=== PATIENT | female | born 1990 | race Caucasian/White ===

== ENCOUNTER 2019-11-19 06:43 | Outpatient (CLI) | payer OTHER ==
[2019-11-19 07:18] LABS: APPEARANCE,URINE CLEAR; BILIRUBIN,URINE NEGATIVE (NEGATIVE); COLOR,URINE STRAW; GLUCOSE, URINE 50 mg/dL (NEGATIVE); KETONES,URINE NEGATIVE (NEGATIVE); LEUKOCYTE ESTERASE,URINE NEGATIVE (NEGATIVE); NITRITE,URINE NEGATIVE (NEGATIVE); PROTEIN,URINE NEGATIVE (NEGATIVE); URINE SPECIFIC GRAVITY 1.003; UROBILINOGEN,URINE NEGATIVE mg/dL (<2.0)
[2019-11-19 07:36] LABS: URINE AMPHETAMINES SCREEN NEGATIVE; URINE BARBITURATES SCREEN NEGATIVE; URINE BENZODIAZEPINES SCREEN NEGATIVE; URINE COCAINE SCREEN NEGATIVE; URINE MARIJUANA (THC) SCREEN NEGATIVE; URINE METHADONE SCREEN NEGATIVE; URINE PHENCYCLIDINE SCREEN NEGATIVE
[2019-11-19] MEDS ORDERED: HYDROXYZINE PAMOATE 50 MG CAPSULE ONE (08:22)
[2019-11-19] MEDS ORDERED: HYDROXYZINE PAMOATE 50 MG CAPSULE PO ONE (08:24)
--- NOTE | 2019-11-19 08:35 | Non Stress Test Report ---
Non Stress Test Datetime Report Generated by CPN: 11/19/2019 08:35 DEMOGRAPHIC EGA NST: 38.4 INDICATION Indication for Study (NST) Other: LC MONITORING Monitor Explained: Monitor Explained; Test Explained; Patient Verbalized Understanding Time on Monitor: 11/19/2019 07:00 Time off Monitor: 11/19/2019 08:34 NST Duration: 94 NST INTERVENTIONS NST Interventions: None Physician Notified NST: Dr. Zaragoza BABY A: [id number] BABY A Movement : Present Contraction Frequency : irregular FHR Baseline : 130 (Annotations: Data stored by [facility] on behalf of user) Accelerations : 15X15 Decelerations : None Variability : Moderate 6-25bpm NST Review: Meets Criteria for Reactive NST NST Review and Verified By : Ericka Phelps RN NST Results: Reactive NST REPORT Report Trigger: Send Report
== END 2019-11-19 08:27 | disposition home or self-care (01) ==
LOC: LC 06:43
PROVIDERS: ATTEND Obstetrics & Gynecology Gynecology
DX: O47.1 False labor at or after 37 completed weeks of gestation (principal); Z3A.38 38 weeks gestation of pregnancy
CPT/HCPCS: 59025; 80307; 81005

== ENCOUNTER 2019-11-20 09:32 | Outpatient (CLI) | payer OTHER ==
[2019-11-20 10:07] LABS: APPEARANCE,URINE CLEAR; BILIRUBIN,URINE NEGATIVE (NEGATIVE); COLOR,URINE YELLOW; GLUCOSE, URINE NEGATIVE (NEGATIVE); KETONES,URINE NEGATIVE (NEGATIVE); LEUKOCYTE ESTERASE,URINE NEGATIVE (NEGATIVE); NITRITE,URINE NEGATIVE (NEGATIVE); PROTEIN,URINE NEGATIVE (NEGATIVE); URINE SPECIFIC GRAVITY 1.008; UROBILINOGEN,URINE NEGATIVE mg/dL (<2.0)
[2019-11-20 10:22] LABS: URINE AMPHETAMINES SCREEN NEGATIVE; URINE BARBITURATES SCREEN NEGATIVE; URINE BENZODIAZEPINES SCREEN NEGATIVE; URINE COCAINE SCREEN NEGATIVE; URINE MARIJUANA (THC) SCREEN NEGATIVE; URINE METHADONE SCREEN NEGATIVE; URINE PHENCYCLIDINE SCREEN NEGATIVE
[2019-11-20] MEDS ORDERED: HYDROXYZINE PAMOATE 50 MG CAPSULE ONE (11:41)
[2019-11-20] MEDS ORDERED: HYDROXYZINE PAMOATE 50 MG CAPSULE PO ONE (11:48)
--- NOTE | 2019-11-20 11:50 | Non Stress Test Report ---
Non Stress Test Datetime Report Generated by CPN: 11/20/2019 11:50 DEMOGRAPHIC Test Number: 2 EGA NST: 38.5 INDICATION Indication for Study (NST) Other: labor check VITAL SIGNS Temperature - NST: 98.2 Pulse - NST: 73 RESP - NST: 12 NBPSYS NST: 105 NBPDIA NST: 67 MONITORING Monitor Explained: Monitor Explained; Test Explained Time on Monitor: 11/20/2019 09:45 Time off Monitor: 11/20/2019 11:38 NST Duration: 113 NST INTERVENTIONS NST Interventions: PO Hydration; Reposition Patient Physician Notified NST: Hay MD BABY A: [id number] BABY A Movement : Present Contraction Frequency : irregular FHR Baseline : 125 Accelerations : 15X15 Decelerations : None Variability : Moderate 6-25bpm NST Review: Meets Criteria for Reactive NST NST Review and Verified By : Balbina RN NST Results: Reactive NST REPORT Report Trigger: Send Report
== END 2019-11-20 12:02 | disposition home or self-care (01) ==
LOC: LC 09:32
PROVIDERS: ATTEND Obstetrics & Gynecology
DX: O47.1 False labor at or after 37 completed weeks of gestation (principal); Z3A.37 37 weeks gestation of pregnancy; Z88.1 Allergy status to other antibiotic agents
CPT/HCPCS: 59025; 80307; 81005

== ENCOUNTER 2019-11-21 10:59 | Outpatient (CLI) | payer OTHER ==
[2019-11-21 11:34] LABS: APPEARANCE,URINE SLIGHTLY-CLOUDY; BILIRUBIN,URINE NEGATIVE (NEGATIVE); COLOR,URINE YELLOW; GLUCOSE, URINE 50 mg/dL (NEGATIVE); KETONES,URINE NEGATIVE (NEGATIVE); LEUKOCYTE ESTERASE,URINE TRACE (NEGATIVE); NITRITE,URINE NEGATIVE (NEGATIVE); PROTEIN,URINE 30 mg/dL (NEGATIVE); URINE SPECIFIC GRAVITY 1.013; UROBILINOGEN,URINE NEGATIVE mg/dL (<2.0)
[2019-11-21 11:56] LABS: URINE AMPHETAMINES SCREEN NEGATIVE; URINE BARBITURATES SCREEN NEGATIVE; URINE BENZODIAZEPINES SCREEN NEGATIVE; URINE COCAINE SCREEN NEGATIVE; URINE MARIJUANA (THC) SCREEN NEGATIVE; URINE METHADONE SCREEN NEGATIVE; URINE PHENCYCLIDINE SCREEN NEGATIVE
[2019-11-21] MEDS ORDERED: RINGERS SOLUTION,LACTATED 1,000 ML IV ONE (12:18)
[2019-11-21] MEDS ORDERED: NALBUPHINE HCL INJ 10 MG/1 ML AMPULE IV ONE (12:19)
[2019-11-21] MEDS ORDERED: PROMETHAZINE HCL INJ 25 MG/1 ML VIAL IV ONE (12:20)
[2019-11-21] MEDS ORDERED: PROMETHAZINE HCL INJ 25 MG/1 ML VIAL ONE (12:21)
[2019-11-21] MEDS ORDERED: NALBUPHINE HCL INJ 10 MG/1 ML AMPULE ONE (12:21)
[2019-11-21] MEDS ORDERED: NALBUPHINE HCL INJ 10 MG/1 ML AMPULE INJ ONE (12:52)
== END 2019-11-21 14:22 | disposition home or self-care (01) ==
LOC: LC 10:59
PROVIDERS: ATTEND Obstetrics & Gynecology
DX: O47.1 False labor at or after 37 completed weeks of gestation (principal); Z3A.38 38 weeks gestation of pregnancy; Z88.1 Allergy status to other antibiotic agents
CPT/HCPCS: 59025; 81005; 80307; J2300; J2550

== ENCOUNTER 2019-11-22 00:24 | Inpatient (IN) | payer OTHER ==
[2019-11-22 01:02] LABS: APPEARANCE,URINE SLIGHTLY-CLOUDY; BILIRUBIN,URINE NEGATIVE (NEGATIVE); COLOR,URINE YELLOW; GLUCOSE, URINE NEGATIVE (NEGATIVE); KETONES,URINE NEGATIVE (NEGATIVE); LEUKOCYTE ESTERASE,URINE TRACE (NEGATIVE); NITRITE,URINE NEGATIVE (NEGATIVE); PROTEIN,URINE NEGATIVE (NEGATIVE); URINE SPECIFIC GRAVITY 1.006; UROBILINOGEN,URINE NEGATIVE mg/dL (<2.0)
[2019-11-22] MEDS ORDERED: NALBUPHINE HCL INJ 10 MG/1 ML AMPULE ONE (01:27)
[2019-11-22] MEDS ORDERED: PROMETHAZINE HCL INJ 25 MG/1 ML VIAL ONE (01:27)
[2019-11-22] MEDS ORDERED: PROMETHAZINE HCL INJ 25 MG/1 ML VIAL IV ONE (01:30)
[2019-11-22] MEDS ORDERED: NALBUPHINE HCL INJ 10 MG/1 ML AMPULE INJ ONE (01:30)
[2019-11-22] MEDS ORDERED: RINGERS SOLUTION,LACTATED 1,000 ML IV PRN (01:37)
[2019-11-22 01:55] LABS: URINE AMPHETAMINES SCREEN NEGATIVE; URINE BARBITURATES SCREEN NEGATIVE; URINE BENZODIAZEPINES SCREEN NEGATIVE; URINE COCAINE SCREEN NEGATIVE; URINE MARIJUANA (THC) SCREEN NEGATIVE; URINE METHADONE SCREEN NEGATIVE; URINE PHENCYCLIDINE SCREEN NEGATIVE
[2019-11-22] MEDS ORDERED: OXYTOCIN 10 UNIT/ML VIAL ONE (05:29)
[2019-11-22] MEDS ORDERED: MISOPROSTOL 0.2 MG TABLET ONE (05:29)
[2019-11-22] MEDS ORDERED: OXYTOCIN/0.9 % SODIUM CHLORIDE 30 UNIT/500 ML RTUINJ ONE (05:30)
[2019-11-22] MEDS ORDERED: FENTANYL/BUPIVACAINE/NS/PF 300 MCG/150 ML RTUINJ EPI ONE (05:30)
[2019-11-22] MEDS ORDERED: BUPIVACAINE HCL 0.25 % INJ/PF (2.5 MG/1 ML) 30 ML VIAL ONE (05:30)
[2019-11-22] MEDS ORDERED: LIDOCAINE 1% INJ-PF (10 MG/ML) 30 ML SDV ONE (05:30)
[2019-11-22] MEDS ORDERED: EPHEDRINE SULFATE INJ 50 MG/1 ML AMPULE ONE (05:30)
--- NOTE | 2019-11-22 06:15 | Admission Physical ---
Datetime Report Generated by CPN: 11/22/2019 06:15 CURRENT ADMISSION Chief Complaint: Uterine Contractions Chief Complaint Other: Here for painful contractions approx 5-6 apart Admit Impression : Term, Intrauterine Admit Plan: Admit to Unit; Initiate Labor Protocol ALLERGIES Medication Allergies: Yes Medication Allergies: amoxicillin (11/22/2019) Latex: No Latex Allergies Food Allergies: n/a Environmental Allergies: n/a OBSTETRICAL HISTORY EDC: 11/29/2019 00:00 : 2 Para: 0 Term: 0 : 0 SAB: 1 IAB: 0 Ectopic: 0 Livin Cesareans: 0 VBACs: 0 Multiple Births: 0 Gestational Diabetes: No Rh Sensitization: No Incompetent Cervix: No SYLVESTER: No Infertility: No ART Treatment: No Uterine Anomaly: No IUGR: No Hx Previous C/S: No Macrosomia: No Hx Loss/Stillborn: No PIH: No Hx : No Placenta Previa/Abruption: No Depression/PP Depression: No PTL/PROM: No Post Hemorrhage: No Current Procedures: Ultrasound Obstetrical History Comments: current: S>D>97th% hydramnios SEE RECORDS Alcohol: No Marijuana : No Cocaine: No Other Illicit Drugs: No Cigarettes: Never Smoker. [id number] MEDICAL HISTORY Diabetes: No Blood Transfusion: No Pulmonary Disease (Asthma, TB): No Breast Disease: No Hypertension: No Car Hop Surgery: No Heart Disease: No Hosp/Surgery: No Autoimmune Disorder: No Anesthetic Complications: No Kidney Disease: No Abnormal Pap Smear: No Neuro/Epilepsy: No Psychiatric Disorders: No Other Medical Diseases: No Hepatitis/Liver Disease: No Significant Family History: No Varicosities/Phlebitis: No Trauma/Violence : No Thyroid Dysfunction: No INFECTIOUS HISTORY Gonorrhea: No Genital Herpes: No Chlamydia: No Tuberculosis: No Syphilis: No Hepatitis: No HIV/AIDS Exposure: No Rash or Viral Illness: No HPV: No PHYSICAL EXAM General: Normal HEENT: Normal Neurologic: Normal Thyroid: Normal Heart: Normal Lungs: Normal Breast: Normal Back: Normal Abdomen: Normal Genitourinary Exam: Normal Extremities: Normal DTRs: Normal Pelvic Type: Adequate Vital Signs: Reviewed VAGINAL EXAM Dilatation: 5 Effacement: 80 Station: -1 Contraction Comments: Contractions Q 5 minutes MEMBRANES Pooling: Negative Membranes: Intact FETUS A EGA: 39.0 Monitoring: External US FHR- Baseline: 130 Variability: Moderate 6-25bpm Accelerations: 15X15 Decelerations: None FHR Category: Category I Presentation: Vertex Admit Comment: at 39.0 weeks EGA in active labor -Admit to LDR -NPO and IVFs: LR bolus one liter then continue at 125 cc/h -GBS Negative -Hx one SAB -Baby last in 97%, Poly but resolved -Anticipate PLANS FOR LABOR AND DELIVERY Labor and Delivery: None Pain Management: Natural; Medications; Epidural Feeding Preference: Both Benefit of Breast Feed Discussed: Yes Circumcision: N/A INFORMED CONSENT Informed Consent Obtained: Vaginal Delivery; Vacuum/Forceps Assist; Risks, Benefits and Alternatives Discussed Signature: with User ID: Robert : with User ID: Robert
[2019-11-22] MEDS ORDERED: FAMOTIDINE INJ/PF 20 MG/2 ML SDV IV SCH (06:30)
[2019-11-22 06:59] LABS: ABSOLUTE EOSINOPHILS # (AUTO) 0.1 10^3/uL (0.0-0.6); ABSOLUTE LYMPHOCYTES (AUTO) 2.2 10^3/uL (0.5-4.7); ABSOLUTE MONOCYTES (AUTO) 1.1 10^3/uL (0.1-1.4); ABSOLUTE NEUT (AUTO) 11.3 10^3/uL (1.7-8.2); BASOPHILS % (AUTO) 0.1 % (0-2); EOSINOPHILS % (AUTO) 0.7 % (0-6); HEMATOCRIT 36.6 % (36.0-47.0); HEMOGLOBIN 12.6 g/dL (12.0-15.5); LYMPHOCYTES % (AUTO) 14.7 % (13-45); MEAN CORPUSCULAR HEMOGLOBIN 30.5 pg (27.0-33.4); MEAN CORPUSCULAR HGB CONC 34.5 g/dL (32.0-36.0); MEAN CORPUSCULAR VOLUME 89 fl (80-97); MONOCYTES % (AUTO) 7.7 % (3-13); PLATELET COUNT 205 10^3/uL (150-450); RED BLOOD COUNT 4.13 10^6/uL (3.72-5.28); RED CELL DISTRIBUTION WIDTH 13.4 % (11.5-14.0); SEGMENTED NEUTROPHILS % (AUTO) 76.8 % (42-78); TOTAL CELLS COUNTED % (AUTO) 100 %; WHITE BLOOD COUNT 14.8 10^3/uL (4.0-10.5)
[2019-11-22] MEDS ORDERED: FENTANYL CITRATE INJ/PF 100 MCG/2 ML AMPUL ONE (07:38)
--- NOTE | 2019-11-22 08:32 | L&D Progress Notes ---
PROGRESS NOTES Datetime Report Generated by CPN: 11/22/2019 08:32 PROGRESS NOTE Impression: Reassuring Heart Rate Plan: Continue Present Management Informed Consent Obtained: Vaginal Delivery; Vacuum/Forceps Assist; Risks, Benefits and Alternatives Discussed Comment: comfortable after epidural, decleration x 5 minutes, turned to left side, resolved, moderate variability VAGINAL EXAM Dilatation: 5 Effacement: 80 Station: -1 Contractions: Contractions Q 5 minutes LAST VAGINAL EXAM-NURSING Nursing Exam Dilitation: 6.0 Nursing Exam Effacement: 90 Nursing Exam Station: 0 Nursing Exam Contractions: Unable to determine cx pattern d/t pt going to the restroom MEMBRANES Pooling: Negative Membranes: Intact FETUS A : 39.0 Presentation: Vertex SIGNATURE SIGNATURE: [id number] Assignment: Deepika Gavin MD Signature: with User ID: [email or web address] : with User ID: [email or web address]
[2019-11-22] MEDS ORDERED: OXYTOCIN/0.9 % SODIUM CHLORIDE 30 UNIT/500 ML RTUINJ IV PRN ×2 (09:29→16:59)
--- NOTE | 2019-11-22 09:35 | L&D Progress Notes ---
PROGRESS NOTES Datetime Report Generated by CPN: 11/22/2019 09:35 PROGRESS NOTE Impression: Reassuring Heart Rate Plan: Continue Present Management; Augmentation Informed Consent Obtained: Vaginal Delivery; Vacuum/Forceps Assist; Risks, Benefits and Alternatives Discussed Vital Signs : Reviewed; Within Normal Limits Comment: Irregular uc's, will start Pitocin for augmentation, comfortable with epidural, Cat 1 strip, uc's q 5-8 min VAGINAL EXAM Dilatation: 5 Effacement: 80 Station: -1 Contractions: Contractions Q 5 minutes LAST VAGINAL EXAM-NURSING Nursing Exam Dilitation: 6.0 Nursing Exam Effacement: 90 Nursing Exam Station: 0 Nursing Exam Contractions: Unable to determine cx pattern d/t pt going to the restroom MEMBRANES Pooling: Negative Membranes: Intact FETUS A Monitoring: External US FHR Category: Category I : 39.0 Presentation: Vertex SIGNATURE SIGNATURE: [id number] Assignment: Deepika Gavin MD Signature: with User ID: Mike : with User ID: Mike
[2019-11-22] MEDS ORDERED: LABETALOL HCL 200 MG TABLET PO SCH (10:00)
--- NOTE | 2019-11-22 12:00 | L&D Progress Notes ---
PROGRESS NOTES Datetime Report Generated by CPN: 11/22/2019 12:00 PROGRESS NOTE Impression: Non-reassuring Heart Rate Plan: Continue Present Management; Augmentation Informed Consent Obtained: Vaginal Delivery; Vacuum/Forceps Assist; Risks, Benefits and Alternatives Discussed Vital Signs : Reviewed; Within Normal Limits Comment: Late decelerations, Pitocin stopped, position change, increase IV fluids, Oxygen VAGINAL EXAM Dilatation: 5 Effacement: 80 Station: -1 Contractions: Contractions Q 5 minutes LAST VAGINAL EXAM-NURSING Nursing Exam Dilitation: 8-9 Nursing Exam Effacement: 90 Nursing Exam Station: -1 Nursing Exam Contractions: Unable to determine cx pattern d/t pt going to the restroom MEMBRANES Pooling: Negative Membranes: Intact FETUS A Monitoring: External US FHR Category: Category I : 39.0 Presentation: Vertex SIGNATURE SIGNATURE: [id number] Assignment: Deepika Gavin MD Signature: with User ID: [email or web address] : with User ID: Mike
--- NOTE | 2019-11-22 14:21 | L&D Progress Notes ---
PROGRESS NOTES Datetime Report Generated by CPN: 11/22/2019 14:21 PROGRESS NOTE Impression: Non-reassuring Heart Rate Plan: Continue Present Management; Augmentation Informed Consent Obtained: Vaginal Delivery; Vacuum/Forceps Assist; Risks, Benefits and Alternatives Discussed Vital Signs : Reviewed; Within Normal Limits Comment: complete,start pushing, variables and late decels with pushing, Pitocin has been off, Oxygen, knee chest VAGINAL EXAM Dilatation: 5 Effacement: 80 Station: -1 Contractions: Contractions Q 5 minutes LAST VAGINAL EXAM-NURSING Nursing Exam Dilitation: 10.0 Nursing Exam Effacement: 100 Nursing Exam Station: 1 Nursing Exam Contractions: Unable to determine cx pattern d/t pt going to the restroom MEMBRANES Pooling: Negative Membranes: Intact FETUS A Monitoring: External US FHR Category: Category I : 39.0 Presentation: Vertex SIGNATURE SIGNATURE: [id number];[id number];[id number] Assignment: Deepika Gavin MD Signature: with User ID: Mike : with User ID: Mike
--- NOTE | 2019-11-22 16:08 | L&D Progress Notes ---
PROGRESS NOTES Datetime Report Generated by CPN: 11/22/2019 16:08 PROGRESS NOTE Impression: Non-reassuring Heart Rate Plan: Continue Present Management; Augmentation Informed Consent Obtained: Vaginal Delivery; Vacuum/Forceps Assist; Risks, Benefits and Alternatives Discussed Vital Signs : Reviewed; Within Normal Limits Comment: VE by Dr. Gavin to evaluate position, ROT, repositioned, different pushing techniques used, Cat 1 strip, No Pitocin continue to push and reevaluate in 1 hr, variables with pushing at times, moderate variability VAGINAL EXAM Dilatation: 5 Effacement: 80 Station: -1 Contractions: Contractions Q 5 minutes LAST VAGINAL EXAM-NURSING Nursing Exam Dilitation: 10.0 Nursing Exam Effacement: 100 Nursing Exam Station: 1 Nursing Exam Contractions: Unable to determine cx pattern d/t pt going to the restroom MEMBRANES Pooling: Negative Membranes: Intact FETUS A Monitoring: External US FHR Category: Category I : 39.0 Presentation: Vertex SIGNATURE SIGNATURE: [id number];[id number] Assignment: Deepika Gavin MD Signature: with User ID: Mike : with User ID: Mike
[2019-11-22] MEDS ORDERED: GLYCERIN/WITCH HAZEL LEAF 1 EACH MED..WIPE TP PRN (16:59)
[2019-11-22] MEDS ORDERED: MEASLES,MUMPS&RUBELLA VACC/PF 0.5 ML VIAL SUBCUT PRN (16:59)
[2019-11-22] MEDS ORDERED: ACETAMINOPHEN WITH CODEINE #3 TABLET PO PRN ×2 (16:59)
[2019-11-22] MEDS ORDERED: MAGNESIUM HYDROXIDE SUSP 30 ML UDCUP PO PRN (16:59)
[2019-11-22] MEDS ORDERED: DIPH/PERTUSS(ACELL)/TETANUS VAC/PF 0.5 ML SYR (>=10YO) IM PRN (16:59)
[2019-11-22] MEDS ORDERED: PSEUDOEPHEDRINE HCL 30 MG TABLET PO PRN (16:59)
[2019-11-22] MEDS ORDERED: ACETAMINOPHEN 325 MG TABLET PO PRN (16:59)
[2019-11-22] MEDS ORDERED: PROMETHAZINE HCL 25 MG SUPP.RECT PR PRN (16:59)
[2019-11-22] MEDS ORDERED: ZOLPIDEM TARTRATE 5 MG TABLET PO PRN (16:59)
[2019-11-22] MEDS ORDERED: PROMETHAZINE HCL INJ 25 MG/1 ML VIAL IV PRN (16:59)
[2019-11-22] MEDS ORDERED: BENZOCAINE/MENTHOL AEROSOL SPRAY 56 ML TOP PRN (16:59)
[2019-11-22] MEDS ORDERED: PROMETHAZINE HCL 25 MG TABLET PO PRN (16:59)
[2019-11-22] MEDS ORDERED: MISOPROSTOL 0.2 MG TABLET PR PRN (16:59)
[2019-11-22] MEDS ORDERED: NA PHOS,M-B/NA PHOS,DI-BA (ADULT) 133 ML ENEMA PR PRN (16:59)
[2019-11-22] MEDS ORDERED: DIBUCAINE 1% OINTMENT 28 GM TP PRN (16:59)
[2019-11-22] MEDS ORDERED: DIPHENHYDRAMINE HCL 25 MG CAPSULE PO PRN (16:59)
[2019-11-22] MEDS: FAMOTIDINE 20 MG TABLET PO SCH (21:42)
[2019-11-22] MEDS: IBUPROFEN 800 MG TABLET PO SCH (21:43)
[2019-11-23] MEDS: IBUPROFEN 800 MG TABLET PO SCH ×3 (05:26→22:37)
[2019-11-23] MEDS: DOCUSATE SODIUM 100 MG CAPSULE PO SCH ×3 (08:13→17:20)
[2019-11-23] MEDS: FERROUS SULFATE 325 MG TABLET PO SCH ×3 (08:13→17:20)
[2019-11-23 08:24] LABS: HEMATOCRIT 36.5 % (36.0-47.0); HEMOGLOBIN 12.3 g/dL (12.0-15.5); MEAN CORPUSCULAR HEMOGLOBIN 30.2 pg (27.0-33.4); MEAN CORPUSCULAR HGB CONC 33.7 g/dL (32.0-36.0); MEAN CORPUSCULAR VOLUME 90 fl (80-97); PLATELET COUNT 217 10^3/uL (150-450); RED BLOOD COUNT 4.08 10^6/uL (3.72-5.28); RED CELL DISTRIBUTION WIDTH 13.3 % (11.5-14.0)
--- NOTE | 2019-11-23 09:50 | PDOC PROGRESS REPORT ---
Subjective-OB Progress Note for:: 11/23/19 - PP Day #1, doing well, A negative, rubella non- immune, , UOB voiding Physical Exam (OB) Vital Signs: Temp Pulse Resp BP Pulse Ox 98.0 F 78 17 121/66 97 11/23/19 08:07 11/23/19 08:07 11/23/19 08:07 11/23/19 08:07 11/23/19 08:07 Intake & Output 11/22/19 11/23/19 11/24/19 06:59 06:59 06:59 Weight 93.9 kg - General General Appearance: Appears well, Alert In distress: None - Lochia Lochia Amount: Scant < 10 ml Lochia Color: Rubra/Red - Abdomen Description: Soft, Round Hernia Present: No Fundal Description: Firm, Midline Fundal Height: u/u - u/2 - Respiratory Respiratory Status: No respiratory distress - Abdominal Distension: No distension Tenderness: Nontender - Genitourinary Genitourinary Note: voiding - Extremities Upper extremity: Normal inspection Lower extremities: Normal inspection - Neurological Cognition: Normal Orientation: AAOx4 - Psychological Associated symptoms: Normal affect, Normal mood - Skin Skin Temperature: Warm Objective-Diagnostic Laboratory: 11/23/19 06:43 11/22/19 11/23/19 06:14 06:43 WBC 19.0 H RBC 4.08 Hgb 12.3 Hct 36.5 MCV 90 MCH 30.2 MCHC 33.7 RDW 13.3 Plt Count 217 Blood Type A NEGATIVE Antibody Screen POSITIVE Assessment and Plan(PN) - Assessment and Plan (1) macrosomia Qualifiers: Fetus number: fetus 1 of multiple gestation Trimester: third trimester Qualified Code(s): O36.63X1 - Maternal care for excessive growth, third trimester, fetus 1 Is this a current diagnosis for this admission?: Yes (2) Obstetrical laceration, first degree Is this a current diagnosis for this admission?: Yes (4) Premature rupture of membranes Qualifiers: PROM gestational age: -third trimester Is this a current diagnosis for this admission?: Yes (5) Shoulder dystocia, delivered, current hospitalization Is this a current diagnosis for this admission?: Yes Plan:: ambulation encouraged, Routine PP orders - Time Spent with Patient Time with patient: Less than 15 minutes Medications reviewed and adjusted accordingly: Yes - Disposition Anticipated Discharge: Home Within: within 24 hours
[2019-11-23] MEDS: PRENATAL VITAMIN W DHA CAPSULE PO SCH (10:06)
[2019-11-23] MEDS: SENNOSIDES/DOCUSATE 8.6-50 MG 1 EACH TABLET PO SCH (10:06)
[2019-11-23] MEDS: LORATADINE/PSEUDOEPHEDRINE SUL 10-240 MG TAB.SR.24H PO SCH (10:06)
[2019-11-23] MEDS: FAMOTIDINE 20 MG TABLET PO SCH ×2 (10:07→23:59)
[2019-11-24] MEDS: IBUPROFEN 800 MG TABLET PO SCH ×2 (05:32→13:09)
--- NOTE | 2019-11-24 09:33 | PDOC PROGRESS REPORT ---
Subjective-OB Progress Note for:: 11/24/19 Subjective: Doing well, baby under bili lights, no c/o, Physical Exam (OB) Vital Signs: Temp Pulse Resp BP Pulse Ox 97.5 F 71 18 122/74 100 11/24/19 07:43 11/24/19 07:43 11/24/19 07:43 11/24/19 07:43 11/24/19 07:43 Intake & Output 11/23/19 11/24/19 11/25/19 06:59 06:59 06:59 Intake Total 850 Balance 850 - PIH/Pre-Eclampsia DTR's: 2 + Clonus: Negative Headache: Absent Epigastric Pain: No Visual Changes: No - Lochia Lochia Amount: Scant < 10 ml Lochia Color: Rubra/Red - Abdomen Description: Soft, Round Hernia Present: No Fundal Description: Midline Fundal Height: u/u - u/2 Objective-Diagnostic Laboratory: 11/23/19 06:43 11/22/19 11/23/19 06:14 06:43 Blood Type A NEGATIVE A NEGATIVE Antibody Screen POSITIVE Assessment and Plan(PN) - Assessment and Plan (1) Obstetrical laceration, first degree Is this a current diagnosis for this admission?: Yes (2) Shoulder dystocia, delivered, current hospitalization Is this a current diagnosis for this admission?: Yes (3) macrosomia Qualifiers: Fetus number: fetus 1 of multiple gestation Trimester: third trimester Qualified Code(s): O36.63X1 - Maternal care for excessive growth, third trimester, fetus 1 Is this a current diagnosis for this admission?: Yes (5) Premature rupture of membranes Qualifiers: PROM gestational age: -third trimester Is this a current diagnosis for this admission?: Yes - Time Spent with Patient Time with patient: Less than 15 minutes Medications reviewed and adjusted accordingly: Yes - Disposition Anticipated Discharge: Home Within: within 24 hours - home today
--- NOTE | 2019-11-24 09:38 | PDOC DISCHARGE SUMMARY ---
Impression - Admit/DC Date/PCP Admission Date/Primary Care Provider: 11/22/19 04:48 Discharge Date: 11/24/19 - Discharge Diagnosis (1) Obstetrical laceration, first degree Is this a current diagnosis for this admission?: Yes (2) Shoulder dystocia, delivered, current hospitalization Is this a current diagnosis for this admission?: Yes (3) macrosomia Is this a current diagnosis for this admission?: Yes (5) Premature rupture of membranes Is this a current diagnosis for this admission?: Yes - Additional Information Resuscitation Status: Full Code Discharge Diet: As Tolerated, Regular Discharge Activity: Activity As Tolerated, Pelvic Rest Referrals: FLORY PIERRE MD [ACTIVE STAFF] - ([facility] 4 weeks) Home Medications: Loratadine/Pseudoephedrine [Claritin-D 24 Hour Tablet] 1 tab PO DAILY 11/19/19 Prenat 115/Iron Fum/Folic/Dss [ 19 Tablet] 1 tab PO DAILY 11/19/19 HPI Gestational Age: 39 Reason(s) for Admission: PROM Procedures: NST, Ultrasound Intrapartum Procedure(s): Spontaneous Vaginal Delivery Intrapartum Procedure Note: shoulder dystocia, polyhydramnious Complication(s): Laceration-Vaginal Laceration-Degree: 1st Hospital Course Hospital Course: routine, no problems Results Laboratory Results: WBC 19.0 10^3/uL (4.0-10.5) H 11/23/19 06:43 RBC 4.08 10^6/uL (3.72-5.28) 11/23/19 06:43 Hgb 12.3 g/dL (12.0-15.5) 11/23/19 06:43 Hct 36.5 % (36.0-47.0) 11/23/19 06:43 MCV 90 fl (80-97) 11/23/19 06:43 MCH 30.2 pg (27.0-33.4) 11/23/19 06:43 MCHC 33.7 g/dL (32.0-36.0) 11/23/19 06:43 RDW 13.3 % (11.5-14.0) 11/23/19 06:43 Plt Count 217 10^3/uL (150-450) 11/23/19 06:43 Lymph % (Auto) 14.7 % (13-45) 11/22/19 06:14 [place] % (Auto) 7.7 % (3-13) 11/22/19 06:14 Eos % (Auto) 0.7 % (0-6) 11/22/19 06:14 Baso % (Auto) 0.1 % (0-2) 11/22/19 06:14 Absolute Neuts (auto) 11.3 10^3/uL (1.7-8.2) H 11/22/19 06:14 Absolute Lymphs (auto) 2.2 10^3/uL (0.5-4.7) 11/22/19 06:14 Absolute Monos (auto) 1.1 10^3/uL (0.1-1.4) 11/22/19 06:14 Absolute Eos (auto) 0.1 10^3/uL (0.0-0.6) 11/22/19 06:14 Absolute Basos (auto) 0.0 10^3/uL (0.0-0.2) 11/22/19 06:14 Seg Neutrophils % 76.8 % (42-78) 11/22/19 06:14 Urine Color YELLOW 11/22/19 00:31 Urine Appearance SLIGHTLY-CLOUDY 11/22/19 00:31 Urine pH 7.0 (5.0-9.0) 11/22/19 00:31 Ur Specific [place] 1.006 11/22/19 00:31 Urine Protein NEGATIVE mg/dL (NEGATIVE) 11/22/19 00:31 Urine Glucose (UA) NEGATIVE mg/dL (NEGATIVE) 11/22/19 00:31 Urine Ketones NEGATIVE mg/dL (NEGATIVE) 11/22/19 00:31 Urine Blood MODERATE (NEGATIVE) H 11/22/19 00:31 Urine Nitrite NEGATIVE (NEGATIVE) 11/22/19 00:31 Urine Bilirubin NEGATIVE (NEGATIVE) 11/22/19 00:31 Urine Urobilinogen NEGATIVE mg/dL (<2.0) 11/22/19 00:31 Ur Leukocyte Esterase TRACE (NEGATIVE) H 11/22/19 00:31 Urine Ascorbic Acid NEGATIVE (NEGATIVE) 11/22/19 00:31 Urine Opiates Screen NEGATIVE 11/22/19 00:31 Urine Methadone Screen NEGATIVE 11/22/19 00:31 Ur Barbiturates Screen NEGATIVE 11/22/19 00:31 Ur Phencyclidine Scrn NEGATIVE 11/22/19 00:31 Ur Amphetamines Screen NEGATIVE 11/22/19 00:31 U Benzodiazepines Scrn NEGATIVE 11/22/19 00:31 Urine Cocaine Screen NEGATIVE 11/22/19 00:31 U Marijuana (THC) Screen NEGATIVE 11/22/19 00:31 RPR NONREACTIVE (NONREACTIVE) 11/22/19 06:14 Blood Type A NEGATIVE 11/23/19 06:43 Antibody Screen POSITIVE 11/22/19 06:14 Antibody Identification RHOGAM INDUCED ANTI-D 11/22/19 06:14 Screen NEGATIVE 11/23/19 06:43 Plan Health Concerns: normal pp Plan of Treatment: discharge home Goals: no complications Time Spent: Less than 30 Minutes
[2019-11-24] MEDS: LORATADINE/PSEUDOEPHEDRINE SUL 10-240 MG TAB.SR.24H PO SCH (10:06)
[2019-11-24] MEDS: SENNOSIDES/DOCUSATE 8.6-50 MG 1 EACH TABLET PO SCH (10:06)
[2019-11-24] MEDS: PRENATAL VITAMIN W DHA CAPSULE PO SCH (10:09)
[2019-11-24] MEDS: DOCUSATE SODIUM 100 MG CAPSULE PO SCH (10:09)
[2019-11-24] MEDS: FERROUS SULFATE 325 MG TABLET PO SCH (10:09)
[2019-11-24] MEDS: FAMOTIDINE 20 MG TABLET PO SCH (10:09)
[2019-11-24 11:50] VITALS: BP 126/69
--- NOTE | 2019-11-29 07:04 | Delivery Summary ---
Del Sum A-C Datetime Report Generated by CPN: 11/29/2019 07:04 DELIVERY PERSONNEL DELIVERY PERSONNEL: [id number] Delivery Doctor:: Doreen Castellano CNM Labor and Delivery Nurse:: Aditi De León RNauto body repair teacher Nurse:: CL Nichols Nursery Nurse:: Danelle Nguyen RN Thermal Engineer/PAINT MAKER: Amelia Sequeira, OPERATIONS RESEARCH ENGINEER Thermal Engineer/PAINT MAKER: Jose Villafuerte, OPERATIONS RESEARCH ENGINEER MATERNAL INFORMATION Delivery Anesthesia: Epidural Medications After Delivery: Pitocin 30 Units in 500ml NS/D5W; Cytotec 600mcg Per Rectum/Vagina Meds After Delivery Comment: pitocin 30 units/500ml Delivery QBL: 100 Maternal Complications: None Provider Comments: after pushing delivery of head, turtle sign, dx shoulder dystocia, called for Dr. Gavin, gentle lateral traction x 1, suprapubic, Apple, Dr. Gavin in, wood screw maneuver with delivery of infant, placed on mothers abd, cord clamped and cut and given to nursery nurse, spont delivery of grossly normal large placenta, 3 VC, perineal laceration repaired with2-0 chromic, first degree without complications, FFFM, cytotec 600 mcg via rectum and Pitocin infusing Mom holding baby, hsb at BS Baby moving all extremities and vigorous cry LABOR SUMMARY EDC: 11/29/2019 00:00 No. Babies in Womb: 1 Attempted: No Labor Anesthesia: Epidural LABOR INFORMATION Reason for Induction: Not Applicable Onset of Labor: 11/22/2019 07:30 Complete Dilatation: 11/22/2019 14:00 Oxytocin: Augmentation Group B Beta Strep: negative Antibiotics # of Doses: 0 Antibiotics Time of Last Dose: n/a Name of Antibiotic Given: n/a Steroids Given: None Reason Steroids Not Administered: Not Applicable MEMBRANES Membranes Rupture Method: Artificial Rupture of Membranes: 11/22/2019 11:18 Length of Rupture (hr): 5.37 Amniotic Fluid Color: Clear Amniotic Fluid Amount: Small Amniotic Fluid Odor: None STAGES OF LABOR Stage 1 hr: 6 Stage 1 min: 30 Stage 2 hr: 2 Stage 2 min: 40 Stage 3 hr: 0 Stage 3 min: 8 Total Time in Labor hr: 9 Total Time in Labor min: 18 VAGINAL DELIVERY Episiotomy: None Laceration #1: Perineal Laceration Extension #1: First Degree Laceration Repair Note: 2-0 vicryl for repair Sponge Count Correct: Yes CSECTION DELIVERY Primary Indication: N/A Secondary Indication: N/A CSection Incidence: N/A Labor: N/A Elective: N/A CSection Incision: N/A BABY A INFORMATION Infant Delivery Date/Time: 11/22/2019 16:40 Method of Delivery: Vaginal Method of Delivery: Vaginal Nurse Controlled Delivery: No Born in Route : No : N/A Forceps: N/A Vacuum Extraction: N/A Shoulder Dystocia : Yes SHOULDER DYSTOCIA BABY A Delivery of Head: 11/22/2019 16:39 Time Head to Delivery : 1.0 1st Intervention to Resolve: McRobert's Maneuver 2nd Intervention to Resolve: Suprapubic Pressure 3rd Intervention to Resolve: McRobert's Maneuver 4th Intervention to Resolve: Disla Maneuver Verify NO Fundal Pressure: No Fundal Pressure Applied Arm Under Symphisis at Del: Right Shoulder Dystocia Comments: limited r arm movement PRESENTATION/POSITION BABY A Presentation: Cephalic Presentation: Cephalic Presentation: Cephalic Presentation: Cephalic Presentation: Cephalic Cephalic Presentation: Vertex Vertex Position: Right Occipital Anterior Breech Presentation: N/A PLACENTA INFORMATION BABY A Placenta Delivery Time : 11/22/2019 16:48 Placenta Method of Delivery: Spontaneous Placenta Method of Delivery: Spontaneous Placenta Status: Delivered SCORES BABY A Heart Rate 1 min: >100 bpm Resp Effort 1 min: Good Cry Reflex Irritability 1 min: Cough or Sneeze or Pulls Away Muscle Tone 1 min: Some Flexion of Extremities Color 1 min: Blue/Pale Resuscitation Effort 1 min: Tactile Stimulation SCORE 1 MIN: 7 Heart Rate 5 min: >100 bpm Resp Effort 5 min: Good Cry Reflex Irritability 5 min: Cough or Sneeze or Pulls Away Muscle Tone 5 min: Active Motion Color 5 min: Body [place], Extremities Blue SCORE 5 MIN: 9 INFANT INFORMATION BABY A Gestational Age at Delivery: 39.0 Gestational Status: Full Term- 39- 40.6 Weeks Outcome : Liveborn Infant Condition : Stable Infant Sex: Female Infant Sex: Female IDENTIFICATION BABY A Verification Date/Time: 11/22/2019 17:09 ID Band Number: [id number] Mother's Name Verified: Yes RN Verifying Infant: MMyanciy, Rn TMartin,Rn WEIGHT/LENGTH BABY A Birthweight (gm): 4101 Weight (lb): 9 Weight (oz): 1 Infant Length (in): 20.00 Infant Length (cm): 50.80 CORD INFORMATION BABY A No. Cord Vessels: 3 Nuchal Cord : N/A Cord Blood Taken: Yes-For Eval (Mom's Blood Type - or O+) Suction: Mouth ASSESSMENT BABY A Complications: Multiple Variable Decels Physical Findings at Delivery: Molding of the Head; Bruising Physical Findings- Other: limited movement of r arm Respirations: Appears Normal Skin to Skin: Yes Skin to Skin Time (min): 15 Equal Opportunity Representative/ALS Called : No Care By: Candida Nguyen RN Transferred To: Remains with Mother BABY B INFORMATION : N/A
== END 2019-11-24 13:14 | disposition home or self-care (01) | DRG 807 ==
LOC: LC 00:24 → LR 04:48 → 2S 20:18
PROVIDERS: ADMIT Obstetrics & Gynecology; ATTEND Obstetrics & Gynecology
PROC: 10E0XZZ Delivery of Products of Conception, External Approach (ICD-10-PCS; principal; 2019-11-22)
PROC: 0HQ9XZZ Repair Perineum Skin, External Approach (ICD-10-PCS; 2019-11-22)
PROC: 10907ZC Drainage of Amniotic Fluid, Therapeutic from Products of Conception, Via Natural or Artificial Opening (ICD-10-PCS; 2019-11-22)
PROC: 3E0234Z Introduction of Serum, Toxoid and Vaccine into Muscle, Percutaneous Approach (ICD-10-PCS; 2019-11-24)
DX: O76 Abnormality in fetal heart rate and rhythm complicating labor and delivery (principal); Z37.0 Single live birth; O40.3XX0 Polyhydramnios, third trimester, not applicable or unspecified; O66.0 Obstructed labor due to shoulder dystocia; Z3A.39 39 weeks gestation of pregnancy; O70.0 First degree perineal laceration during delivery; Z88.0 Allergy status to penicillin; O26.893 Other specified pregnancy related conditions, third trimester; Z67.11 Type A blood, Rh negative
CPT/HCPCS: 1967; 36415; 80307; 81005; 85025; 85027; 85461; 86592; 86850; 86870; 86900; 86901; J2300; J2550; J2590; J2790; J3010; J3490